=== PATIENT | female | born 1990 | race Caucasian/White ===

== ENCOUNTER → 2022-10-07 | Outpatient (CLI) | payer OTHER | LOC: M LAB 14:11 | PROVIDERS: ATTEND Physician Assistant | DX: L66.1 Lichen planopilaris (principal) ==

== ENCOUNTER → 2023-03-31 | Outpatient (REF) | payer OTHER ==
[2023-04-01 23:07] LABS: ANA (HEP2) Positive (.)
== END ==
LOC: M SFHCRHEU 10:04
PROVIDERS: ATTEND Internal Medicine
DX: R76.8 Other specified abnormal immunological findings in serum (principal); R53.83 Other fatigue

== ENCOUNTER → 2024-11-23 | Outpatient (REF) | payer OTHER | LOC: M SFHCDERM 17:38 | PROVIDERS: ATTEND Physician Assistant | DX: D23.71 Other benign neoplasm of skin of right lower limb, including hip (principal); D23.62 Other benign neoplasm of skin of left upper limb, including shoulder ==